=== PATIENT | male | born 1990 | race Caucasian/White ===

== ENCOUNTER 2025-04-19 00:46 | Emergency (ER) | payer SELFPAY ==
[2025-04-19 01:44] LABS: #Basophils 0.04 10x3/uL (0.0-0.2); #Eosinophils Less than 0.03 10x3/uL (0.0-0.7); #Monocytes 0.18 10x3/uL (0.11-0.59); #Neutrophils 2.90 10x3/uL (1.40-6.50); %Basophils 1.0 % (0.0-1.0); %Eosinophils 0.5 % (0.0-10.0); %Lymphocytes 23.8 % (21.0-51.0); %Monocytes 4.4 % (0.0-10.0); %Neutrophils 70.3 % (42.0-75.0); Hematocrit 35.3 % (42.0-52.0); Hemoglobin 11.3 g/dL (14.0-18.0); Mean Corpuscular Hemoglobin 27.0 pg (27.0-31.0); Mean Corpuscular Volume 84.4 fL (78.0-98.0); Platelet Count 219 10x3/uL (130-400); Red Blood Cell (RBC) Count 4.18 mill/uL (4.70-6.10); White Blood Cell (WBC) Count 4.12 10x3/uL (4.8-10.8)
[2025-04-19 01:59] LABS: ALT (SGPT) 79 U/L (Less than 45); AST (SGOT) 231 U/L (11-34); Albumin 4.2 g/dL (3.1-4.5); Alkaline Phosphatase 136 U/L (40-110); Anion Gap 21 mmol/L (10-20); BUN (Urea Nitrogen) 8 mg/dL (8.9-20.6); Bilirubin, Total 0.9 mg/dL (0.3-1.2); Calc. Creatinine Clearance 0 mL/min (70-130); Calcium 8.6 mg/dL (7.8-10.44); Carbon Dioxide 23 mmol/L (22-29); Chloride 94 mmol/L (98-107); Globulin 3.8 g/dL (2.4-3.5); Glucose 127 mg/dL (70-105); Lipase 85 U/L (8-78); Potassium 3.3 mmol/L (3.5-5.1); Sodium 135 mmol/L (136-145)
[2025-04-19] MEDS ORDERED: Ketorolac Tromethamine 30 MG (1 mL) VIAL ONE (03:01)
[2025-04-19] MEDS ORDERED: Metoclopramide HCl 10 MG (2 mL) VIAL ONE (03:01)
[2025-04-19 03:03] LABS: Bacteria/HPF None Seen HPF (None Seen); CAUTI Indications for Culture Pelvic or flank pain; Glucose, Urine (Dipstick) Normal (Negative); Leukocyte Negative Leu/uL (Negative); Protein, Urine (Dipstick) 30 mg/dL (Neg-Trace); RBC/HPF 0-3 HPF (0-3); Specific Gravity, Urine 1.030 (1.002-1.036); WBC/HPF 0-3 HPF (0-3)
[2025-04-19 03:04] LABS: Urine Culture Reflex No No
== END 2025-04-19 04:39 | disposition home or self-care (01) ==
LOC: ERS 00:46
DX: F41.9 Anxiety disorder, unspecified (principal); E87.6 Hypokalemia; Z87.891 Personal history of nicotine dependence
CPT/HCPCS: 80053; 81001; 83690; 85025; 96374; 96375; J1885; J2765